=== PATIENT | male | born 1980 | race Asian ===

== ENCOUNTER 2024-11-27 11:45 | Emergency (ER) | payer BC, SELFPAY ==
[2024-11-27 11:49] VITALS: BP 112/73; PULSE 93; RESP 14; TEMP 36.8; O2SAT 98
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
--- NOTE | 2024-11-27 12:00 | DI.RAD_ITS ---
Exam(s) XR HAND LT COMPLETE EXAM: XR HAND LT COMPLETE CLINICAL HISTORY: ?foreign body. TECHNIQUE: 2D digital imaging was performed. Three views. COMPARISON: No exams were available for comparison FINDINGS: BONES: No acute fracture is present. No bony destructive lesion is seen. JOINTS: No dislocation present. SOFT TISSUE: There is a metallic foreign body measuring 5 millimeters in length noted in the soft tissues adjacent to the pisiform and triquetrum. There are few tiny submillimeter metallic densities. There is soft tissue swelling a small amount of soft tissue air. IMPRESSION: 5 millimeter fragment of shrapnel in the soft tissues adjacent to the triquetrum and pisiform No evidence of fracture. The preliminary [facility] report was reviewed. DATA REPOSITORY: RADIATION DOSE DELIVERED:
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
[2024-11-27] MEDS: cefTRIAXone 2 GM/50 ML BAG IVPB (13:41)
[2024-11-27 13:45] VITALS: BP 117/71; PULSE 77; RESP 15; O2SAT 100
[2024-11-27 13:53] LABS: Abs Immature Grans 0.02 10^3/uL (0.0-0.06); HCT 46.6 % (40.0-50.0); HGB 15.7 g/dL (13.5-17.5); Immature Grans % 0.3 %; MCH 27.9 pg (27.0-33.0); MCHC 33.7 % (32.0-36.0); MCV 83 fL (80-95); MPV 9.3 fL (8.0-11.0); Platelet Count 245 10^3/uL (130-400); RBC 5.62 10^6/uL (4.36-5.78); RDW 12.5 % (11.8-14.1); RDW-SD 37.8 fL; WBC 6.47 10^3/uL (4.4-10.8)
[2024-11-27 14:04] LABS: Magnesium 2.3 mg/dL (1.8-2.4)
[2024-11-27 14:10] LABS: ALT 39 U/L (16-63); AST 32 U/L (15-37); Albumin 4.8 g/dL (3.4-5.0); Alkaline Phosphatase 82 U/L (46-116); Anion Gap 11.0 mmol/L (3-11); BUN 15 mg/dL (7-18); Bilirubin, Total 0.7 mg/dL (0.2-1.0); CO2 28.0 mmol/L (21.0-32.0); Calcium 9.7 mg/dL (8.5-10.1); Chloride 101 mmol/L (98-107); Estimated GFR 109.36 (mL/min/1.73m2); Glucose 92 mg/dL (74-106); Potassium 4.5 mmol/L (3.5-5.1); Sodium 140 mmol/L (136-145); Total Protein 8.9 g/dL (6.4-8.2)
== END 2024-11-27 14:31 | disposition short-term general hospital (02) ==
PROVIDERS: Emergency Provider Emergency Medicine
DX: G93.89 Other specified disorders of brain (principal); S06.890A Other specified intracranial injury without loss of consciousness, initial encounter; S60.552A Superficial foreign body of left hand, initial encounter; W34.00XA Accidental discharge from unspecified firearms or gun, initial encounter; Y93.89 Activity, other specified; Y92.838 Other recreation area as the place of occurrence of the external cause; Z18.11 Retained magnetic metal fragments
CPT/HCPCS: 80053; 86850; 86900; 86901; 96365; 99285; 70450; 70480; 73130; 83735; 85025; J0696